=== PATIENT | female | born 1960 | race Caucasian/White ===

== ENCOUNTER 2017-05-20 06:01 | Emergency (ER) | payer OTHER ==
[2017-05-20] MEDS: LORAZEPAM 2 MG INJ IM (07:46)
== END 2017-05-20 10:44 | disposition home or self-care (01) ==
LOC: E/R 06:01
DX: S00.01XA Abrasion of scalp, initial encounter (principal); W01.198A Fall on same level from slipping, tripping and stumbling with subsequent striking against other object, initial encounter; Y92.002 Bathroom of unspecified non-institutional (private) residence as the place of occurrence of the external cause
CPT/HCPCS: 70450; 96372; 99285-25